=== PATIENT | male | born 1950 | race Caucasian/White ===

== ENCOUNTER 2020-06-14 16:11 | Emergency (ER) | payer MEDICARE ==
[~2020-06-14 16:11] MED LIST: ALLO100T PO; AMOX1TAB11 PO; ASPI-482 PO; GUAI400T78 PO; HYDR-2145 PO; METF10007 PO; METO50TA6 PO; MULT-445 PO; PIOG30TA41 PO; SIMV20TA18 PO; SITA100T PO
[2020-06-14 16:48] VITALS: BP 141/69
[2020-06-15] MEDS ORDERED: METO50TA6 PO (21:29)
[2020-06-15] MEDS ORDERED: LISI-334 PO (21:29)
[2020-06-15] MEDS ORDERED: SIMV40TA18 PO (21:29)
== END 2020-06-14 18:38 | disposition left against medical advice (07) ==
LOC: ER 16:11
DX: L03.115 Cellulitis of right lower limb (principal); Z53.21 Procedure and treatment not carried out due to patient leaving prior to being seen by health care provider

== ENCOUNTER → 2020-11-03 | Outpatient (CLI) | payer MEDICARE ==
[2020-08-03 15:07] VITALS: BP 143/58
[~2020-11-03] MED LIST changes: +ASCO500C PO; +CHOL200074 PO; +DAPT350V IV; +DOXY100T PO; +ERTA1VIA16 IJ; +GLIP5TAB10 PO; +INSU100V8 SQ; +IPRA3AMP29 NEB; +LACT1CAP29 PO; +LISI20TA18 PO; +MELA3TAB4 PO; +PANT40TA77 PO; +PRED20TA PO; +SIMV40TA18 PO; +ZINC50TA39 PO
--- NOTE | 2020-11-03 14:31 | RAD ---
CT of the chest without contrast 11/03/2020 INDICATION: Follow-up infiltrates COMPARISON STUDY: CT of the chest without contrast the 2019 TECHNIQUE: Multidetector CT imaging of the chest was performed without the administration of IV contr ast. FINDINGS: Heart appears mildly enlarged but similar to comparison study. Dense coronary calcification is seen. Scattered mediastinal lymph nodes are noted. Prevascular nodes are mildly prominent but sim ilar to comparison study. Appears to be a paraesophageal lymph node on the right which is slightly de creased in the interim since comparison exam. There is no pneumothorax or pleural effusion. The previ ously seen patchy groundglass infiltrates with intralobular septal thickening have improved significa ntly in the interim. Residual mild groundglass infiltrates and linear opacities persist. A component of underlying chronic lung disease is possible. No new focal infiltrates are seen. The limited visual ization of the upper abdomen demonstrates cholelithiasis. No acute abnormality seen in the upper abdo men. No acute osseous changes are seen. IMPRESSION: Significant improvement in bilateral patchy groundglass infiltrates diffuse interstitial thickening with respect to comparison exam. A component of underlying chronic interstitial lung disea se may be present. Developing scarring is also a possibility. CT DOSING PQRS STATEMENT: One or more of the following individualized dose reduction techniques were utilized for this examinat ion: 1. Automated exposure control 2. Adjustment of the mA and/or kV according to patient size 3. Use of iterative reconstruction technique Electronically signed by: Juwan Mathur MD (11/03/2020 2:28 PM) [id number]
== END ==
LOC: CT 11:44
PROVIDERS: ATTEND Internal Medicine Pulmonary Disease
DX: R91.8 Other nonspecific abnormal finding of lung field (principal)
CPT/HCPCS: 71250